=== PATIENT | male | born 1970 | race Caucasian/White ===

== ENCOUNTER 2022-03-28 08:26 | Outpatient (CLI) | payer OTHER, SELFPAY ==
[2022-03-28 12:44] LABS: Cholesterol* 169 mg/dL (90-199); Triglycerides* 89 mg/dL (40-149)
[2022-03-28 12:45] LABS: HDL Cholesterol* 48 mg/dL (>=40); LDL Cholesterol Calculated 103 mg/dL (<100)
[2022-03-28 12:55] LABS: Creatinine Urine 102.3 mg/dL
[2022-03-28 13:00] LABS: Microalbumin Creatinine Ratio 0 mg/g (0-30); Microalbumin Urine 1 mg/dL
[2022-03-28 13:24] LABS: Vitamin B12* 422 pg/mL (243-894)
== END 2022-03-28 08:27 | disposition home or self-care (01) ==
PROVIDERS: PCP Physician Assistant Medical; Visit Provider Physician Assistant Medical
DX: E11.9 Type 2 diabetes mellitus without complications (principal); E78.5 Hyperlipidemia, unspecified; I10 Essential (primary) hypertension
CPT/HCPCS: 80061; 82043; 82570; 82607

== ENCOUNTER 2022-05-22 06:49 | Outpatient (CLI) | payer OTHER, SELFPAY | END 2022-05-22 06:50 | disposition home or self-care (01) | PROVIDERS: PCP Physician Assistant Medical; Visit Provider Internal Medicine | DX: Z12.11 Encounter for screening for malignant neoplasm of colon (principal) | CPT/HCPCS: 45378; J2250; J3010 ==

== ENCOUNTER 2023-06-03 08:24 | Outpatient (CLI) | payer OTHER, SELFPAY | END 2023-06-03 08:25 | disposition home or self-care (01) | LOC: NFLDREF 16:33 | PROVIDERS: Family Medicine; PCP Physician Assistant Medical; Referring Provider Physician Assistant Medical; Visit Provider Physician Assistant Medical | DX: Z00.00 Encounter for general adult medical examination without abnormal findings (principal); E11.9 Type 2 diabetes mellitus without complications; E78.5 Hyperlipidemia, unspecified; I10 Essential (primary) hypertension; E66.01 Morbid (severe) obesity due to excess calories; Z12.5 Encounter for screening for malignant neoplasm of prostate | CPT/HCPCS: 80053; 80061; 82043; 82570; 84153 ==

== ENCOUNTER 2024-01-13 08:56 | Outpatient (CLI) | payer OTHER, SELFPAY | END 2024-01-13 08:57 | disposition home or self-care (01) | PROVIDERS: PCP Physician Assistant Medical; Visit Provider Physician Assistant Medical | DX: E78.5 Hyperlipidemia, unspecified (principal); E66.01 Morbid (severe) obesity due to excess calories; E11.9 Type 2 diabetes mellitus without complications; I10 Essential (primary) hypertension | CPT/HCPCS: 82607; 84443 ==

== ENCOUNTER 2024-06-08 08:45 | Outpatient (CLI) | payer OTHER, SELFPAY | END 2024-06-08 08:46 | disposition home or self-care (01) | LOC: NFLDREF 15:48 | PROVIDERS: PCP Physician Assistant Medical; Referring Provider Physician Assistant Medical; Visit Provider Physician Assistant Medical | DX: E11.9 Type 2 diabetes mellitus without complications (principal); I10 Essential (primary) hypertension; E66.01 Morbid (severe) obesity due to excess calories; E78.5 Hyperlipidemia, unspecified; Z68.41 Body mass index [BMI] 40.0-44.9, adult; Z12.5 Encounter for screening for malignant neoplasm of prostate; Z13.6 Encounter for screening for cardiovascular disorders | CPT/HCPCS: 80053; 80061; 82043; 82570; 82607; 84443; G0103 ==

== ENCOUNTER 2025-05-26 10:51 | Outpatient (CLI) | payer OTHER, SELFPAY | END 2025-05-26 10:52 | disposition home or self-care (01) | PROVIDERS: PCP Physician Assistant Medical; Visit Provider Physician Assistant Medical | DX: Z00.00 Encounter for general adult medical examination without abnormal findings (principal); I10 Essential (primary) hypertension; E11.9 Type 2 diabetes mellitus without complications | CPT/HCPCS: 80053; 80061; 82043; 82570; 82607; G0103 ==